=== PATIENT | male | born 1950 | race Caucasian/White ===

== ENCOUNTER 2017-03-22 08:27 | Day surgery (SDC) | payer MEDICARE, BC ==
--- NOTE | 2016-10-25 13:10 | HP ---
PREOPERATIVE HISTORY AND PHYSICAL: DATE OF ADMISSION/SURGERY: 11/06/16 DATE OF OFFICE VISIT/ENCOUNTER: 10/18/16 ATTENDING SURGEON: Flor Zhong MD PROCEDURE: Left small finger Dupuytren's excision. CHIEF COMPLAINT: Dupuytren's contracture, left small finger. HISTORY OF PRESENT ILLNESS: This is a 66-year-old male, who has had deformity and contracture of his left small finger and also bumps in the palm of his left hand as well as his right hand for the past 3 years. He has had a gradual increase in the contracture of the left small finger. He also complains of pain in the palm of his hand where the bumps are located. 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 He does not know of any family history of this problem and there was no injury. The patient denies any associated numbness or tingling. He is interested in pursuing surgical intervention for correction of this problem and has agreed to proceed with the left small finger Dupuytren's excision. PAST MEDICAL HISTORY: 1. Diabetes. 2. GERD. 3. Hiatal hernia. 4. History of an abdominal abscess caused by a gallstone. PAST SURGICAL HISTORY: 1. Cholecystectomy. 2. Hernia repair. 3. Abdominal surgery for abscess. CURRENT MEDICATIONS: 1. Metformin HCl ER 500 mg daily. 2. Prilosec 20 mg twice daily. ALLERGIES: IBUPROFEN causes a rash, ZOSYN causes nausea and vomiting. FAMILY HISTORY: Diabetes, cancer, stroke. SOCIAL HISTORY: The patient is retired. He is a former smoker. He quit smoking approximately 26 years ago. Prior to that, he smoked less than a pack a day for 18 years. He denies recreational drug use. Does admit to alcohol use on occasion. REVIEW OF SYSTEMS: General: Negative for fevers, chills, or night sweats. No known anesthesia problems. HEENT: Negative for headache, lightheadedness, or syncopal episodes. Integumentary: Negative for abrasions, lesions, or open wounds. Cardiothoracic: Negative for hypertension. Negative for chest pain, palpitations, or edema. Pulmonary: Negative for shortness of breath with exertion, chronic cough, or COPD. GI: Negative for nausea, vomiting, diarrhea , or constipation. Positive for GERD. : Negative for nocturia, urinary frequency, urgency, history of UTIs, or kidney problems. Musculoskeletal: Positive for current complaint. Negative for chronic or intermittent back pain or history of fractures. Neurological: Negative for paresthesias, numbness, history of seizures, stroke, or epilepsy. Endocrine: Positive for diabetes. Negative for thyroid issues. Hematologic: Negative for easy bruising, anemia, excessive bleeding, other bleeding disorders, and history of DVTs. Infectious Disease: Negative for history of MRSA, hepatitis C, or HIV. PHYSICAL EXAMINATION GENERAL: Well-developed, well-nourished, 66-year-old male in no acute distress. VITAL SIGNS: Height 5 feet 11 inches, weight 171 pounds, pulse rate 88, blood pressure 128/82. HEENT: Normocephalic, atraumatic. Pupils were equal, round, and reactive to light and accommodation. Extraocular movements are intact. Throat is clear. NECK: Supple. No palpable lymph nodes. PULMONARY: Lungs are clear to auscultation bilaterally. No wheezes, rales, or rhonchi. CARDIOTHORACIC: Regular rate and rhythm. S1, S2. No murmurs, rubs, or gallops. No edema. ABDOMEN: Positive bowel sounds, soft, nontender. MUSCULOSKELETAL: On exam of the left hand, he has Dupuytren's contracture involving the PIP joint of the small finger with about an 80-degree flexion contracture and multiple tender nodules in the palm. He can flex his fingers into a full fist. Neurovascular function is intact. The skin is intact. NEUROLOGIC: Alert and oriented x3. Cranial nerves II through XII intact. Sensation is intact to light touch. PERIPHERAL VASCULAR: 2+ radial and ulnar pulses. Negative Calixto test. IMPRESSION: Left hand Dupuytren's contracture and nodules. PLAN: The patient is scheduled to undergo a left small finger Dupuytren's excision with Dr. Zhong on 11/06/16. He will return to the office 10 to 14 days postop for followup and suture removal. A prescription for [place] was e- scribed to the patient's pharmacy for postoperative pain management. DALLIN ELIZABETH [id number]/[facility] #: [id number] TONY
--- NOTE | 2017-03-21 08:45 | HP ---
PREOPERATIVE HISTORY AND PHYSICAL: DATE OF ADMISSION/SURGERY: 03/22/[address] [facility] DATE OF OFFICE VISIT/ENCOUNTER: 03/20/17 ATTENDING SURGEON: Flor Zhong MD * (DICTATED BY DALLIN ELIZABETH) PROCEDURE: Left small finger Dupuytren's excision. CHIEF COMPLAINT: Dupuytren's contracture, left small finger. HISTORY OF PRESENT ILLNESS: This is a 66-year-old male, who has had deformity and contracture of his left small finger and also has bumps in the palm of his left hand for the past 3 years. He has had a gradual increase in the contracture of the left small finger. He also complains of pain in the palm of his hand where the bumps are located. 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 He does not know of any family history of this problem and there was no injury. The patient denies any associated numbness or tingling. He is interested in pursuing surgical intervention for correction of this problem and has agreed to proceed with a left small finger Dupuytren's excision. PAST MEDICAL HISTORY: 1. Diabetes. 2. GERD. 3. Hiatal hernia. 4. History of an abdominal abscess caused by a gallstone. PAST SURGICAL HISTORY: 1. Cholecystectomy. 2. Hernia repair. 3. Abdominal surgery for abscess. CURRENT MEDICATIONS: 1. Amitriptyline HCl 25 mg daily. 2. Cholestyramine 4 g once daily for diarrhea. 3. Metformin HCl ER 500 mg daily. 4. Prilosec 20 mg twice daily. ALLERGIES: IBUPROFEN causes a rash, ZOSYN causes nausea and vomiting. FAMILY MEDICAL HISTORY: Diabetes, cancer, stroke. SOCIAL HISTORY: The patient is retired. He is a former smoker, he quit smoking approximately 26 years ago, prior to that he smoked less than a pack a day for 18 years. He denies recreational drug use. He does drink alcohol on occasion. REVIEW OF SYSTEMS: General: Negative for fevers, chills, or night sweats. No known anesthesia problems. HEENT: Negative for headache, lightheadedness, or syncopal episodes. Integumentary: Negative for abrasions, lesions, or open wounds. Cardiothoracic: Negative for hypertension, chest pain, palpitations, or edema. Pulmonary: Negative for shortness of breath with exertion, chronic cough, COPD. GI: Negative for nausea, vomiting, diarrhea, or constipation. Positive for GERD. : Negative for nocturia, urinary frequency, urgency, history of UTIs, or kidney problems. Musculoskeletal: Positive for current complaint. Negative for chronic or intermittent back pain or history of fractures. Neurological: Negative for paresthesias, numbness, history of seizure, stroke, or epilepsy. Endocrine: Positive for diabetes. Negative for thyroid issues. Hematologic: Negative for easy bruising, anemia, excessive bleeding, or other bleeding disorders. Negative for history of DVTs. Infectious Disease: Negative for history of MRSA, hepatitis C, or HIV. PHYSICAL EXAMINATION GENERAL: Well-developed, well-nourished 66-year-old male, in no acute distress. VITAL SIGNS: Height 5 feet 11 inches, weight 183 pounds. Pulse rate 76, blood pressure 132/82. HEENT: Normocephalic, atraumatic. Pupils are equal, round, and reactive to light and accommodation. Extraocular movements are intact. Throat is clear. NECK: Supple. No palpable lymph nodes. PULMONARY: Lungs are clear to auscultation bilaterally. No wheezes, rales, or rhonchi. CARDIOTHORACIC: Regular rate and rhythm. S1, S2. No murmurs, rubs, or gallops. No edema. ABDOMEN: Positive bowel sounds, soft, nontender. MUSCULOSKELETAL: On exam of the left hand, he has a Dupuytren's contracture involving the PIP joint of the small finger with about an 80-degree flexion contracture and multiple tender nodules in the palm. He can flex his fingers into a full fist. Neurovascular function is intact. Skin is intact. NEUROLOGICAL: Alert and oriented x3. Cranial nerves II through XII are intact. Sensation is intact to light touch. PERIPHERAL VASCULAR: 2+ radial and ulnar pulses. Negative Calixto test. IMPRESSION: Left hand Dupuytren's contracture and nodules. PLAN: The patient is scheduled to undergo a small finger Dupuytren's excision with Dr. Zhong on 03/22/17. He will return to the office 10 to 14 days postop for followup and suture removal. A prescription for [place] was e-scribed to the patient's pharmacy for postoperative pain management. DALLIN ELIZABETH [id number]/[facility] #: [id number] TONY
[~2017-03-22 08:27] MED LIST: Buffered Lidocaine 0.9% SYRIN* 5 ML/SYR SYRINGE INTRADERM ONE; Sodium Citrate/Citric Acid* 15 ML UDC ONE; Sodium Citrate/Citric Acid* 15 ML UDC PO ONE; celeCOXIB CAP* 100 MG ONE; celeCOXIB CAP* 200 MG PO ONE
[2017-03-22] MEDS ORDERED: ceFAZolin 2 GM PREMIX (*) 50 ML IVPB ONE (08:41)
[2017-03-22] MEDS ORDERED: Lidocaine 1% INJ* 10 MG/ML 30 ML SDV ONE (09:51)
[2017-03-22] MEDS ORDERED: Propofol* 10 MG/ML 20 ML BTL IV PUSH ONE (10:13)
[2017-03-22] MEDS ORDERED: Midazolam* 1 MG/ML 2 ML VIAL (2 MG) ONE (10:13)
[2017-03-22] MEDS ORDERED: fentaNYL* 50 MCG/ML 2 ML VIAL (100 MCG VIAL) ONE (10:13)
[2017-03-22 11:50] VITALS: BP 142/84
--- NOTE | 2017-03-23 06:12 | OP ---
DATE OF OPERATION: 03/22/17 [facility] DATE OF : 46 SURGEON: Flor Zhong MD TRANSITION NURSE: DALLIN Lewis ANESTHESIOLOGIST: Alhaji Marquez MD ANESTHESIA: Local MAC. PRE-OP DIAGNOSIS: Dupuytren's contracture of the left small finger. POST-OP DIAGNOSIS: Dupuytren's contracture of the left small finger. OPERATIVE PROCEDURE: Dupuytren's excision, left small finger. ESTIMATED BLOOD LOSS: Zero. TOURNIQUET TIME: 55 minutes. INDICATIONS: Marquise is a 66-year-old man with Dupuytren's contracture of the PIP joint in his left small finger of approximately 90 degrees. He presents for excision. DESCRIPTION OF PROCEDURE: The patient was brought to the operating room, given a sedation anesthetic and a local infiltration of a total of 15 cc of 1% plain lidocaine in the palm of his left hand. The skin of his left hand and forearm was prepped and draped in the usual sterile fashion. The hand and forearm were exsanguinated and tourniquet elevated to 250 mmHg. Praveen incisions were made in the mid aspect of the palm up to the PIP flexion crease of the small finger. The flaps were elevated over the Dupuytren's tissue. The tissue was then carefully dissected surrounding neurovascular bundles and the flexor tendon sheath, it was removed in its entirety. There was a retrovascular cord _ ____ joint. The neurovascular bundles were intact. The wound was irrigated. Skin edges were reapproximated with 4-0 Nylon sutures. The wound was dressed with Xeroform, 4x4, Webril, and an Kam wrap, with a volar splint to maintain extension of the finger. The patient tolerated the procedure well, was brought to the recovery room in good condition. [id number]/[facility] #: [id number] [facility] CENTERLuis Fernando
--- NOTE | 2017-03-27 03:42 | OP ---
CC: Dr. Zhong OPERATIVE NOTE: ADDENDUM: DATE OF OPERATION: 03/22/17 There are 2 blanks in the operative notes. The first one should away from the and then the second one should say at the PIP. [id number]/[facility] #: [id number] MTDLuis Fernando
== END 2017-03-22 12:10 | disposition home or self-care (01) ==
LOC: OREAST 08:27
PROVIDERS: ATTEND Orthopaedic Surgery
DX: M72.0 Palmar fascial fibromatosis [Dupuytren] (principal); E11.9 Type 2 diabetes mellitus without complications; Z79.84 Long term (current) use of oral hypoglycemic drugs; K21.9 Gastro-esophageal reflux disease without esophagitis; Z88.1 Allergy status to other antibiotic agents; Z88.6 Allergy status to analgesic agent; Z87.891 Personal history of nicotine dependence
CPT/HCPCS: 88304; A9270-GY; J0690; J2001; J2250; J2704; J3010

== ENCOUNTER 2018-09-24 12:03 | Emergency (ER) | payer MEDICARE, BC ==
[2018-09-24 12:12] VITALS: BP 133/80
--- NOTE | 2018-09-24 12:31 | ED ---
Throat Pain/Nasal Congestion - HPI Summary HPI Summary: 68 yo WM p/w left ear pain x3 days associated with decreased hearing, tried to but some ear softeners in left ear but hearing still decreased with sensation of fullness., requests that cerumen be disimpacted - History of Current Complaint Chief Complaint: UCEar Time Seen by Provider: 09/24/18 12:21 Hx Obtained From: Patient Onset/Duration: Sudden Onset Severity: Moderate Associated Signs And Symptoms: Positive: Negative - Allergies/Home Medications Allergies/Adverse Reactions: Allergies Allergy/AdvReac Type Severity Reaction Status Date / Time ibuprofen Allergy Severe Rash Verified 09/24/18 12:12 piperacillin [From Zosyn] Allergy Severe GI Upset Verified 09/24/18 12:12 tazobactam [From Zosyn] Allergy Severe GI Upset Verified 09/24/18 12:12 Home Medications: Home Medications Carbamide Peroxide [Ear Wax Drops] 1 drop LEFT EAR ONCE PRN 09/24/18 [History Confirmed 09/24/18] PMH/Surg Hx/FS Hx/Imm Hx Previously Healthy: Yes Endocrine/Hematology History: Reports: Hx Diabetes - II Denies: Hx Thyroid Disease Cardiovascular History: Reports: Hx Hypercholesterolemia Denies: Hx Hypertension, Hx Pacemaker/ICD Respiratory History: Denies: Hx Asthma, Hx Chronic Obstructive Pulmonary Disease (COPD) GI History: Reports: Hx Gastroesophageal Reflux Disease, Hx Hiatal Hernia, Hx Irritable Bowel, Other GI Disorders - BLT hernia repair, [facility] 2012 Denies: Hx Ulcer History: Denies: Hx Renal Disease Musculoskeletal History: Reports: Hx Arthritis - back and neck, Hx Orthopedic Injury - toe fracture yrs ago, Other Musculoskeletal History Sensory History: Reports: Hx Contacts or Glasses Denies: Hx Cataracts, Hx Hearing Aid Opthamlomology History: Reports: Hx Contacts or Glasses Denies: Hx Cataracts Psychiatric History: Denies: Hx Panic Disorder - Surgical History Surgery Procedure, Year, and Place: 2008- [facility] with abscess drainage on liver 1 yr post surgery. bilat shoulders,. bilat hernia repair. [facility] Hx Anesthesia Reactions: No Infectious Disease History: No Infectious Disease History: Denies: Hx Hepatitis, Hx Human Immunodeficiency Virus (HIV), Traveled Outside the [place] in Last 30 Days - Social History Alcohol Use: None Substance Use Type: Reports: None Smoking Status (MU): Former Smoker Amount Used/How Often: smoked on and off 19 years 1/2ppd Review of Systems - ROS Summary Review of Systems Summary: Constitutional: Negative Skin: Negative Eyes: Negative ENT: see HPI Cardiovascular: Negative Respiratory: Negative Gastrointestinal: Negative Genitourinary: Negative Musculoskeletal: Negative Neurological: Negative Psychological: Normal All Other Systems Reviewed And Are Negative: Yes All Other Systems Reviewed And Are Negative: Yes Physical Exam - Summary Physical Exam Summary: Triage Information Reviewed: Yes Appearance: No Pain Distress Eye Exam: Normal ENT Exam: sofe yellowish wet cerumen in internal and external ear canal, TM not visualized Neck: Supple Respiratory: Lungs clear, Normal breath sounds Cardiovascular: Positive: RRR, S1, S2 Abdominal Exam: Normal Musculoskeletal Exam: Normal Neurological Exam: Normal Psychological Exam: Normal Skin Exam: Normal Vital Signs On Initial Exam: Initial Vitals Temp Pulse Resp BP Pulse Ox 36.8 C 85 18 133/80 99 09/24/18 12:07 09/24/18 12:07 09/24/18 12:07 09/24/18 12:07 09/24/18 12:07 Diagnostics - Vital Signs Vital Signs Temp Pulse Resp BP Pulse Ox 09/24/18 12:07 36.8 C 85 18 133/80 99 - Laboratory Lab Statement: Any lab studies that have been ordered have been reviewed, and results considered in the medical decision making process. EENT Course/Dx - Course Assessment/Plan: Cerumen impaction- irrigation done with successful disimpaction - Diagnoses Provider Diagnoses: Impacted cerumen of left ear Discharge - Sign-Out/Discharge Documenting (check all that apply): Patient Departure All imaging exams completed and their final reports reviewed: No Studies - Discharge Plan Condition: Stable Disposition: HOME Referrals: Ada Sánchez MD [Primary Care Provider] - - Billing Disposition and Condition Condition: STABLE Disposition: Home
== END 2018-09-24 12:59 | disposition home or self-care (01) ==
LOC: UCEAST 12:03
DX: H61.22 Impacted cerumen, left ear (principal); E11.9 Type 2 diabetes mellitus without complications; Z79.84 Long term (current) use of oral hypoglycemic drugs; E78.00 Pure hypercholesterolemia, unspecified; K21.9 Gastro-esophageal reflux disease without esophagitis; Z88.6 Allergy status to analgesic agent; Z88.8 Allergy status to other drugs, medicaments and biological substances; Z87.891 Personal history of nicotine dependence
CPT/HCPCS: 99212; G0463

== ENCOUNTER 2018-11-03 13:41 | Emergency (ER) | payer MEDICARE, BC ==
[2018-11-03 14:05] VITALS: BP 155/85
--- NOTE | 2018-11-03 14:15 | UC ---
Ear Complaint HPI - HPI Summary HPI Summary: 68-year-old diabetic male presents with fullness and decreased hearing out of the left ear for the last 3 days. He has had cerumen impactions in the past and is concerned that that is what he has again. There is mild discomfort there but he has had no fever or upper respiratory symptoms. He denies any difficulties with his blood sugar. - History of Current Complaint Chief Complaint: UCEar Stated Complaint: L EAR PAIN Time Seen by Provider: 11/03/18 13:58 Hx Obtained From: Patient Pain Intensity: 2 - Allergies/Home Medications Allergies/Adverse Reactions: Allergies Allergy/AdvReac Type Severity Reaction Status Date / Time ibuprofen Allergy Severe Rash Verified 11/03/18 14:03 piperacillin [From Zosyn] Allergy Severe GI Upset Verified 11/03/18 14:03 tazobactam [From Zosyn] Allergy Severe GI Upset Verified 11/03/18 14:03 PMH/Surg Hx/FS Hx/Imm Hx Endocrine History: Diabetes - Surgical History Surgical History: Yes Surgery Procedure, Year, and Place: 2007- [facility] with abscess drainage on liver 1 yr post surgery. bilat shoulders,. bilat hernia repair. [facility] - Family History Known Family History: Positive: Non-Contributory - Social History Occupation: Retired Alcohol Use: Occasionally Substance Use Type: None Smoking Status (MU): Never Smoked Tobacco Amount Used/How Often: smoked on and off 19 years 1/2ppd When Did the Patient Quit Smoking/Using Tobacco: quit 27 years ago - Immunization History Most Recent Influenza Vaccination: 2013 Most Recent Tetanus Shot: unk Most Recent Pneumonia Vaccination: unsure when but had Review of Systems All Other Systems Reviewed And Are Negative: Yes Constitutional: Positive: Negative Eyes: Negative: Blurred Vision ENT: Positive: Ear Ache. Negative: Nasal Discharge, Sinus Pain/Tenderness Respiratory: Positive: Negative Cardiovascular: Positive: Negative Neurological: Negative: Headache Physical Exam Triage Information Reviewed: Yes Appearance: Well-Appearing, No Pain Distress, Well-Nourished Vital Signs: Initial Vital Signs Temp 98.9 F 11/03/18 13:56 Pulse 67 11/03/18 13:56 Resp 18 11/03/18 13:56 BP 155/85 11/03/18 13:56 Pulse Ox 98 11/03/18 13:56 Vital Signs Reviewed: Yes Eyes: Positive: Conjunctiva Clear ENT: Positive: Other - The left TM is obscured by cerumen impacted canal. There is no adjacent erythema or mastoid tenderness. Neck: Positive: Supple Respiratory: Positive: Lungs clear Cardiovascular: Positive: RRR Musculoskeletal: Positive: Strength Intact, ROM Intact Neurological: Positive: Alert Skin Exam: Normal Procedures - Procedure Summary Procedure Summary: Irrigation of cerumen impaction: The patient was laid on his right side and irrigated through a blunt tipped catheter with warm water until the TM and was exposed in the cerumen impaction was relieved. He tolerated this well without complication. Ear Complaint Course/Dx - Course Course Of Treatment: Patient's cerumen was irrigated out. There is no sign of otitis externa or otitis media. - Differential Dx/Diagnosis Differential Diagnosis/HQI/PQRI: Cerumen Impaction, Otitis Externa, Otitis Media Provider Diagnosis: Impacted cerumen, left ear Discharge - Sign-Out/Discharge Documenting (check all that apply): Patient Departure All imaging exams completed and their final reports reviewed: No Studies - Discharge Plan Condition: Improved Disposition: HOME Patient Education Materials: Cerumen Impaction (ED) Referrals: Ada Sánchez MD [Primary Care Provider] - Additional Instructions: Return with ear pain, fever, redness of the ear or behind the ear, new symptoms or other concerns. An earwax softener may help prevent this. Follow up with your doctor as needed. - Billing Disposition and Condition Condition: IMPROVED Disposition: Home
== END 2018-11-03 14:27 | disposition home or self-care (01) ==
LOC: UCEAST 13:41
DX: H61.22 Impacted cerumen, left ear (principal); E11.9 Type 2 diabetes mellitus without complications; Z88.6 Allergy status to analgesic agent; Z88.0 Allergy status to penicillin; Z87.891 Personal history of nicotine dependence
CPT/HCPCS: 99212; G0463

== ENCOUNTER 2021-08-28 13:38 | Observation (INO) ==
[2021-08-28] MEDS ORDERED: Thiamine 100 MG/ML 2 ml VIAL (200 mg) IV ONE (14:42)
[2021-08-28] MEDS ORDERED: LORazepam 2 mg VIAL 1 ml IV PUSH ONE ×2 (14:42→17:10)
[2021-08-28 15:03] LABS: ABS Basophils 0.1 10^3/ul (0-0.2); ABS Eosinophils 0.1 10^3/ul (0-0.6); ABS Lymphocytes 1.1 10^3/ul (1.0-4.8); ABS Monocytes 0.4 10^3/ul (0-0.8); ABS Neutrophils 3.6 10^3/ul (1.5-7.7); Eosinophil % 2.3 %; Hematocrit 37 % (42-52); Hemoglobin 12.8 g/dL (14.0-18.0); Lymphocyte % 20.6 %; Mean Corpuscular HGB Conc 34 g/dL (31-36); Mean Corpuscular Hemoglobin 33 pg (27-31); Mean Corpuscular Volume 95 fL (80-94); Mean Platelet Volume 7.5 fL (7.4-10.4); Platelet Count 147 10^3/uL (150-450); Red Blood Count 3.92 10^6 /uL (4.18-5.48); Red Cell Distribution Width 15 % (10-15); White Blood Count 5.2 10^3/uL (3.5-10.8)
[2021-08-28 15:23] LABS: ALT 14 U/L (7-52); AST 21 U/L (13-39); Albumin/Globulin Ratio 1.2 (1-3); Alkaline Phosphatase 92 U/L (35-149); Anion Gap 5 mmol/L (2-11); Blood Urea Nitrogen 7 mg/dL (6-24); CO2 Carbon Dioxide 29 mmol/L (22-32); Calcium 9.5 mg/dL (8.6-10.3); Chloride 102 mmol/L (101-111); Globulin 3.3 g/dL (2-4); Glucose 85 mg/dL (70-100); Lipase 23 U/L (11.0-82.0); Potassium 3.9 mmol/L (3.5-5.0); Sodium 136 mmol/L (135-145); Total Protein 7.3 g/dL (6.4-8.9); eGFR CKD-EPI 85.6 (>60)
[2021-08-28 16:50] LABS: Alcohol, S < 13 mg/dL (<13)
[2021-08-28] MEDS ORDERED: Lorazepam PYXIS KEY PRN ×3 (17:10→19:00)
[2021-08-28] MEDS ORDERED: Thiamine 100 MG/ML 2 ml VIAL (200 mg) IM ONE (18:35)
[2021-08-28 19:03] LABS: Magnesium 1.5 mg/dL (1.9-2.7)
[2021-08-28] MEDS ORDERED: Magnesium Sulfate 2 gm BAG 2 GM/50 ML BAG IVPB ONE (19:12)
[2021-08-28] MEDS ORDERED: Dextrose 50% Syringe 50 ml 25 GM/50 ML SYRINGE IV PUSH PRN (19:16)
[2021-08-28] MEDS: LORazepam 2 mg VIAL 1 ml IV PUSH PRN ×2 (19:21→20:51)
[2021-08-28 19:30] LABS: Vitamin B12 330 pg/mL (180-914)
[2021-08-28 19:31] LABS: Folate 5.96 ng/mL (5.90-24.80)
[2021-08-28] MEDS ORDERED: Cyanocobalamin INJ 1,000 MCG/ML VIAL 1 ML VIAL IM ONE (19:42)
[2021-08-28] MEDS: Enoxaparin 40 MG/0.4 ML SYR SUBCUT SCH (23:32)
[2021-08-28] MEDS: Multivitamins/Minerals TAB PO SCH (23:33)
[2021-08-29 05:43] LABS: Hematocrit 37 % (42-52); Hemoglobin 12.5 g/dL (14.0-18.0); Mean Corpuscular HGB Conc 34 g/dL (31-36); Mean Corpuscular Hemoglobin 32 pg (27-31); Mean Corpuscular Volume 95 fL (80-94); Mean Platelet Volume 7.5 fL (7.4-10.4); Platelet Count 127 10^3/uL (150-450); Red Cell Distribution Width 14 % (10-15); White Blood Count 3.8 10^3/uL (3.5-10.8)
[2021-08-29 06:01] LABS: Calcium 8.9 mg/dL (8.6-10.3); Magnesium 2.1 mg/dL (1.9-2.7); Potassium 3.7 mmol/L (3.5-5.0); eGFR CKD-EPI 94.5 (>60)
[2021-08-29] MEDS ORDERED: Potassium Chlor 20 meq TAB.ER PO ONE (06:30)
[2021-08-29 07:13] LABS: TSH Ultra Thyroid Stim Horm 0.59 mcIU/mL (0.34-5.60)
[2021-08-29] MEDS: Multivitamins/Minerals TAB PO SCH (09:24)
[2021-08-29] MEDS: Enoxaparin 40 MG/0.4 ML SYR SUBCUT SCH (20:55)
[2021-08-30] MEDS ORDERED: LORazepam 2 mg VIAL 1 ml IV PUSH PRN (03:56)
[2021-08-30] MEDS: Multivitamins/Minerals TAB PO SCH (08:26)
[2021-08-30 12:39] VITALS: BP 116/67
== END 2021-08-30 12:20 | disposition home or self-care (01) ==
LOC: ED 13:38 → EDHOLD 13:38 → MEDTELE 22:54
PROVIDERS: ADMIT Student in an Organized Health Care Education/Training Program; ATTEND Internal Medicine